=== PATIENT | male | born 1945 | race Caucasian/White ===

== ENCOUNTER 2016-12-27 06:49 | Inpatient (IN) | payer OTHER ==
[~2016-12-27] VITALS: Ht 180.3 cm; Wt 133.2 kg
[~2016-12-27 06:49] MED LIST: ADULT LOW DOSE81 M1 PO; ALLOPURINOL300 MG PO; AMLODIPINE BESY10 MG PO; ANTIVERT25 MG PO; ASPIRIN325 MG PO; BIOTIN1000 MICRO PO; CATAPRES0.2 MG PO; CLARITIN10 M3 PO; DIOVAN160 MG PO; HYDROCHLOROTHIA25 MG PO; IRON325 M1 PO; LEVO-T50 MCG PO; LOPRESSOR25 MG PO; LOSARTAN POTASS50 MG PO; MECLIZINE HCL25 MG PO; MEDROL DOSEPAK4 MG PO; MOTRIN IB200 MG PO; VITAMIN B-122000 MC1 PO; VITAMIN D31000 UNI2 PO; VITAMIN D34000 UNIT PO
[2016-12-27 07:38] VITALS: BP 193/99
[2016-12-27 12:50] VITALS: BP 168/74
[2016-12-27 15:58] VITALS: BP 170/72
[2016-12-27 17:30] VITALS: BP 151/67
[2016-12-28 00:20] VITALS: BP 150/67
[2016-12-28 04:00] VITALS: BP 140/67
[2016-12-28 05:34] LABS: HEMATOCRIT 36.7 % (38.0-50.0); MCV 93.9 FL (86-99)
[2016-12-28 05:59] LABS: ANION GAP 10 MEQ/L (2-14); CHLORIDE 105 MEQ/L (99-109); GFR ESTIMATE (CALCULATED) 58 mL/min/; GLUCOSE 142 mg/dL (70-99); POTASSIUM 4.2 MEQ/L (3.7-5.4); SAMPLE HEMOLYSIS CHECK 0; SAMPLE ICTERIC CHECK 0; SAMPLE LIPEMIA CHECK 0; SODIUM 141 MEQ/L (136-147); UREA NITROGEN (BUN) 23 mg/dL (9-23)
[2016-12-28 07:59] VITALS: BP 180/79
[2016-12-28] MEDS ORDERED: BENADRYL25 MG PO (08:49)
[2016-12-28] MEDS ORDERED: TYLENOL REGULA325 MG PO (08:52)
[2016-12-28] MEDS ORDERED: BISACODYL5 MG PO (08:52)
[2016-12-28] MEDS ORDERED: CELECOXIB200 MG PO (08:54)
[2016-12-28] MEDS ORDERED: OXYCODONE HCL5 MG PO (08:54)
[2016-12-28] MEDS ORDERED: XARELTO10 MG PO (08:54)
[2016-12-28 11:21] VITALS: BP 141/67
[2016-12-28 15:55] VITALS: BP 133/59
== END 2016-12-28 17:51 | DRG 470 ==
LOC: 2SOUTH → EDBD → 2SOUTH 06:49 → 3WEST 12:44 → 2SOUTH 15:02 → 3WEST 12-28 17:51
PROVIDERS: Orthopaedic Surgery
PROC: 0SRC0J9 Replacement of Right Knee Joint with Synthetic Substitute, Cemented, Open Approach (ICD-10-PCS; principal; 2016-12-27)
DX: M17.11 Unilateral primary osteoarthritis, right knee (principal); I10 Essential (primary) hypertension; E11.9 Type 2 diabetes mellitus without complications; E03.9 Hypothyroidism, unspecified; M25.561 Pain in right knee; M10.9 Gout, unspecified; Z79.01 Long term (current) use of anticoagulants; Z85.89 Personal history of malignant neoplasm of other organs and systems
CPT/HCPCS: 80048; 85014; 85018; 97530 GP; C1713; J0131; J0690; J1100; J1885; J2250; J2405; J2795; J7050; J7120; L1820